=== PATIENT | male | born 1955 | race Caucasian/White ===

== ENCOUNTER → 2018-11-30 | Outpatient (CLI) | payer OTHER ==
--- NOTE | 2018-12-01 10:25 | REP ---
KUB ABDOMEN/PELVIS: KUB films of abdomen and pelvis are performed and demonstrate no evidence of bowel obstruction. Phlebolith is seen in the left pelvis. There are mild degenerative changes of the spine. IMPRESSION: No evidence of bowel obstruction. Electronically Signed by Christiano Christy MD 12/01/2018 10:48 P
== END ==
LOC: M LRY 16:23
PROVIDERS: ATTEND Physician Assistant
DX: I87.8 Other specified disorders of veins (principal); R10.12 Left upper quadrant pain; K59.00 Constipation, unspecified

== ENCOUNTER → 2021-09-13 | Outpatient (CLI) | payer MEDICARE, OTHER ==
[~2021-09-13] MED LIST: KETO10TAB PO
--- NOTE | 2021-09-13 11:53 | REP ---
INDICATION: RT HIP PAIN. COMPARISON: None. TECHNIQUE: AP pelvis two views right hip FINDINGS: The hip joint spaces are symmetric and relatively well maintained. There is no acute fracture, dislocation, or subluxation. IMPRESSION: Within normal limits <Electronically signed by Jonathon Mckinney > 09/13/21 [id number]
== END ==
LOC: M SOG 10:05
PROVIDERS: ATTEND Orthopaedic Surgery Adult Reconstructive Orthopaedic Surgery
DX: M25.551 Pain in right hip (principal)

== ENCOUNTER → 2023-01-17 | Outpatient (CLI) | payer MEDICARE, OTHER ==
[~2023-01-17] MED LIST changes: +E-Z-GAS II EFFERVESCENT PACKET (SODIUM BICARB./CITRIC ACID/SIMETHICONE) As Ordered ONE; +E-Z-HD 98% w/w 340GM SUSP BTL As Ordered ONE; +E-Z-PAQUE 96% w/w SUSP 176GM BTL As Ordered ONE
== END ==
LOC: M RAD 10:16
PROVIDERS: ATTEND Physician Assistant Medical
DX: R13.10 Dysphagia, unspecified (principal)

== ENCOUNTER → 2023-12-19 | Outpatient (CLI) | payer MEDICARE, OTHER ==
[~2023-12-19] MED LIST changes: -E-Z-GAS II EFFERVESCENT PACKET (SODIUM BICARB./CITRIC ACID/SIMETHICONE) As Ordered ONE; -E-Z-HD 98% w/w 340GM SUSP BTL As Ordered ONE; -E-Z-PAQUE 96% w/w SUSP 176GM BTL As Ordered ONE
== END ==
LOC: M WUC 12:14
PROVIDERS: ATTEND Nurse Practitioner Family
DX: M51.37 Other intervertebral disc degeneration, lumbosacral region (principal)